=== PATIENT | female | born 2005 | race Caucasian/White ===

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

== ENCOUNTER 2024-11-21 04:07 | Emergency (ER) | payer SELFPAY ==
[~2024-11-21] VITALS: Ht 162.6 cm; Wt 57.2 kg
[2024-11-21 04:13] VITALS: TEMP 98
--- NOTE | 2024-11-21 04:32 | Physician Documentation ---
History of Present Illness ~ Chief Complaint: Finger pain Stated Complaint: FINGER LAC Time Seen by MD: 04:32 Primary Medical Doctor: [facility] Doug gandhi HPI 19-year-old female who presents with a finger injury She tells me that she was out of the club tonight, and when she got home she hit her finger against the edge of a table, causing her fingernail to detach and a finger laceration. This was to her left 2nd digit. No other associated injuries or concerns. Tetanus within 5 years: No Medication Reconciliation Allergies: Coded Allergies: No Known Allergies (Unverified , 11/21/24) Miscellaneous Medications [ controll], (Reported) Past Medical History Past Medical History: No Pertinent History Past Surgical History: noncontributory Alcohol Use: None Drug Use: marijuana Lives with: Family Lives In: Home Review of Systems Musculoskeletal: Reports: pain, swelling Physical Exam Vital Signs: Temperature: 98.0, Source: Oral, Heart Rate: 80, Respiratory Rate: 16, BP: 128/80, Pulse Oximetry: 99, Weight: 57.200 Oxygen Flow Rate: 0 Physical Exam General: This is an anxious appearing young female, friend at bedside HEENT: Atraumatic, injected conjunctiva bilateral Heart: Regular rate and rhythm, normal-appearing peripheral perfusion including to the hand Lungs: normal work of breathing, normal oxygen saturation on room air Extremities: Warm and well-perfused Left hand: At the 2nd digit, the patient has a laceration around the base of the fingernail, appears consistent with an avulsed fingernail. No active bleeding. Neuro: Alert and oriented Psychiatric: Anxious and tearful, appears tired Procedures Procedures Procedure note: Digital nerve block Indication: Fingernail injury and laceration Consent: Verbal consent was obtained from the patient Procedure: The area was cleaned with alcohol, and approximately 3 cc of 0.5 bupivacaine were injected around the base of the digit. Good pain relief. The patient tolerated well, no complications. Progress Results/Orders Results/Orders Vital Signs 11/21/24 11/21/24 11/21/24 11/21/24 04:13 04:22 04:22 06:00 Temp 98.0 Pulse 99 80 74 Resp 16 18 16 16 B/P (MAP) 94/63 128/80 (96) 118/74 (89) Pulse Ox 98 99 99 O2 Flow Rate 0 Medical Decision Making Additional Comment The patient presents with a finger injury, with what appears to be an avulsed fingernail and laceration. A digital block was performed for pain control. The patient was signed out at shift change to the oncoming ER provider, pending finger nail and laceration repair. Departure Time of Disposition: 06:04 Disposition: 01 HOME / SELF CARE / HOMELESS Impression: Primary Impression: Laceration of finger of left hand with damage to nail Condition: Stable Discharge Instructions: Laceration Care, Adult Referrals: NO PRIMARY CARE PROVIDER (PCP) Education Educated: Patient Educated regarding: diagnosis, treatment, need for follow up Signature Scribe Signature: na Attestation: TWIN Gooden MD Nov 21, 2024 04:32
[2024-11-21 06:48] VITALS: BP 96/54; PULSE 90; RESP 15; O2SAT 97
== END 2024-11-21 06:51 | disposition home or self-care (01) ==
LOC: ER 04:07
DX: S61.213A Laceration without foreign body of left middle finger without damage to nail, initial encounter (principal); F12.90 Cannabis use, unspecified, uncomplicated; W22.03XA Walked into furniture, initial encounter; Y93.89 Activity, other specified; Y92.89 Other specified places as the place of occurrence of the external cause; Y99.8 Other external cause status
CPT/HCPCS: 64450; 99284